=== PATIENT | male | born 1950 | race Two or more races ===

== ENCOUNTER 2022-05-26 05:29 | Day surgery (SDC) | payer OTHER ==
[~2022-05-26 05:29] MED LIST: GLIMEPIRIDE2 MG; IRBESARTAN-HCT1 EACH PO; LOSARTAN-HCTZ1 EACH; METFORMIN HCL500 MG; OMEPRAZOLE20 MG
[2022-05-26] MEDS ORDERED: CIPRO500 MG PO (09:49)
[2022-05-26] MEDS ORDERED: PROTONIX40 MG PO (09:49)
[2022-05-26] MEDS ORDERED: ACETAMINOPHEN-1 EAC2 PO (09:49)
== END 2022-05-26 11:00 | disposition home or self-care (01) ==
LOC: CIR.AMB 05:29
PROVIDERS: ATTEND Surgery
DX: K43.2 Incisional hernia without obstruction or gangrene (principal); K42.9 Umbilical hernia without obstruction or gangrene; K66.0 Peritoneal adhesions (postprocedural) (postinfection); Z88.0 Allergy status to penicillin; Z20.822 Contact with and (suspected) exposure to COVID-19; I10 Essential (primary) hypertension

== ENCOUNTER 2024-01-27 11:55 | Inpatient (IN) | payer OTHER ==
[~2024-01-27] VITALS: Ht 152.4 cm; Wt 89.4 kg
[~2024-01-27 11:55] MED LIST changes: +ACETAMINOPHEN-1 EAC2 PO; +CIPRO500 MG PO; +PROTONIX40 MG PO
[2024-01-27] MEDS ORDERED: RINGERS SOLUTION,LACTATED 1,000 ML IV STA (13:28)
[2024-01-27] MEDS ORDERED: DIATRIZOATE MEGLUMINE, SODIUM 30 ML BOTTLE ONE (14:05)
[2024-01-27 14:19] LABS: HEMATOCRIT 25.7 % (39.0-48.0); MEAN CELL VOLUME 89.2 fL (80.0-100.00); MEAN CORPUSCULAR HGB CONC 33.6 g/dl (32.0-36.0); PLATELET COUNT 217 K/uL (150-450); RED BLOOD COUNT 2.88 M/uL (4.00-6.00)
[2024-01-27 14:20] LABS: PH,URINE 5.5 (5.0-8.0); URINE APPEARANCE Clear; URINE BILIRRUBIN Negative (NEGATIVE); URINE BLOOD Negative; URINE COLOR Yellow; URINE GLUCOSE Negative (NEGATIVE); URINE KETONE Negative (NEGATIVE); URINE LEUKOCYTE Negative; URINE NITRATE Negative; URINE PROTEIN Negative (NEGATIVE); URINE RBC 2.2 uL (0.0-20.8); URINE UROBILINOGEN 0.2 E.U./dl; URINE WBC 7.2 uL (0.0-23.2)
[2024-01-27 14:24] LABS: PARTIAL THROMBOPLASTIN TIME 23.5 SECONDS (22.0-34.0); PROTHROMBIN TIME 10.9 SECONDS (9.0-11.5)
[2024-01-27 14:35] LABS: HEMOGLOBIN 8.6 g/dL (13-16.00); MEAN CORPUSCULAR HEMOGLOBIN 29.8 pg (27.00-32.0)
[2024-01-27 14:39] LABS: ALBUMIN 3.6 gm/dL (3.4-5.0); BILIRUBIN TOTAL 0.67 mg/dL (0.3-1.2); BILIRUBIN,CONJUGATED 0.18 mg/dL (0.0-0.2); BILIRUBIN,UNCONJUGATED 0.49 mg/dL (0.0-0.6); CALCIUM 8.9 mg/dL (8.5-10.1); CREATININE SERUM 1.23 mg/dL (0.70-1.30); GFR 58.01; POTASSIUM 3.69 mEq/L (3.5-5.1); TOTAL PROTEIN 6.6 gm/dL (6.4-8.2)
[2024-01-27 17:47] VITALS: BP 144/80; O2SAT 100
[2024-01-27] MEDS ORDERED: 0.9 % SODIUM CHLORIDE 1,000 ML IV SCH (19:15)
[2024-01-27] MEDS ORDERED: FUROsemide 20 MG/2 ML VIAL IV SCH (19:30)
[2024-01-27] MEDS ORDERED: ONDANSETRON HCL 4 MG in 0.9 % SODIUM CHLORIDE 50 ML IV PRN (19:30)
[2024-01-27] MEDS ORDERED: ACETAMINOPHEN 500 MG GEL..CAP PO PRN (19:30)
[2024-01-27] MEDS ORDERED: PANTOPRAZOLE SODIUM 40 MG/VIAL VIAL IV SCH (21:00)
[2024-01-28 00:13] LABS: ob POSITIVE (NEGATIVE)
[2024-01-28 01:28] VITALS: BP 125/73; O2SAT 98
[2024-01-28 07:47] VITALS: BP 148/86
[2024-01-28] MEDS ORDERED: IRON FUM,PS/FOLIC/BCOMP,C NO.9 1 CAP CAPSULE PO SCH (09:00)
[2024-01-28] MEDS ORDERED: HYDROCHLOROTHIAZIDE 12.5 MG CAPSULE PO SCH (09:00)
[2024-01-28] MEDS ORDERED: IRBESARTAN 150 MG TABLET PO SCH (09:00)
[2024-01-28] MEDS ORDERED: INTEGRA PLUS C1 EACH (09:14)
[2024-01-28] MEDS ORDERED: IRBESARTAN150 MG (09:14)
[2024-01-28] MEDS ORDERED: FAMOTIDINE20 MG (09:14)
[2024-01-28] MEDS ORDERED: HYDROCHLOROTH12.5 M2 (09:15)
[2024-01-28] MEDS ORDERED: TAMSULOSIN HCL0.4 MG (09:15)
[2024-01-28 18:34] VITALS: BP 152/79
[2024-01-29 01:46] VITALS: BP 140/77; O2SAT 97
[2024-01-29 08:00] VITALS: BP 138/79; O2SAT 100
[2024-01-29] MEDS ORDERED: fentaNYL CITRATE 50 MCG/ML AMPUL IV ONE (13:15)
[2024-01-29] MEDS ORDERED: MIDAZOLAM HCL 2 MG/2 ML VIAL IV ONE (13:15)
[2024-01-29 15:07] LABS: HEMATOCRIT 35.4 % (39.0-48.0); HEMOGLOBIN 11.9 g/dL (13-16.00); MEAN CELL VOLUME 89.9 fL (80.0-100.00); MEAN CORPUSCULAR HEMOGLOBIN 30.2 pg (27.00-32.0); MEAN CORPUSCULAR HGB CONC 33.6 g/dl (32.0-36.0); PLATELET COUNT 215 K/uL (150-450); RED BLOOD COUNT 3.94 M/uL (4.00-6.00); RED CELL DISTRIBUTION WIDTH 14.5 % (11.5-14.5)
[2024-01-29 17:00] VITALS: BP 183/76
[2024-01-30 02:03] VITALS: BP 128/74
[2024-01-30 08:26] VITALS: BP 141/74
[2024-01-30 16:00] VITALS: BP 150/81; O2SAT 97
[2024-01-31 01:53] VITALS: BP 165/83
[2024-01-31 08:34] LABS: HEMATOCRIT 30.4 % (39.0-48.0); HEMOGLOBIN 10.4 g/dL (13-16.00); MEAN CELL VOLUME 87.8 fL (80.0-100.00); MEAN CORPUSCULAR HEMOGLOBIN 30.1 pg (27.00-32.0); MEAN CORPUSCULAR HGB CONC 34.3 g/dl (32.0-36.0); PLATELET COUNT 169 K/uL (150-450); RED BLOOD COUNT 3.46 M/uL (4.00-6.00); RED CELL DISTRIBUTION WIDTH 14.4 % (11.5-14.5)
[2024-01-31 09:22] VITALS: BP 138/78
[2024-01-31 16:00] VITALS: BP 158/84; O2SAT 97
[2024-01-31] MEDS ORDERED: PEG3350/SOD SULF,BICARB,CL/KCL 4,000 ML GALLON PO NR (19:00)
[2024-02-01 02:22] VITALS: BP 166/96; O2SAT 98
[2024-02-01 08:34] VITALS: BP 175/85
[2024-02-01] MEDS ORDERED: MIDAZOLAM HCL 2 MG/2 ML VIAL IV STA (13:41)
[2024-02-01] MEDS ORDERED: fentaNYL CITRATE 50 MCG/ML AMPUL IV STA (13:42)
[2024-02-01 17:28] VITALS: BP 147/83
[2024-02-01 22:05] VITALS: BP 180/84
[2024-02-02 01:33] VITALS: BP 145/85; O2SAT 99
[2024-02-02 07:00] VITALS: BP 136/79; O2SAT 96
[2024-02-02 10:08] LABS: HEMATOCRIT 29.2 % (39.0-48.0); HEMOGLOBIN 9.8 g/dL (13-16.00); MEAN CELL VOLUME 89.5 fL (80.0-100.00); MEAN CORPUSCULAR HEMOGLOBIN 30.1 pg (27.00-32.0); MEAN CORPUSCULAR HGB CONC 33.6 g/dl (32.0-36.0); PLATELET COUNT 183 K/uL (150-450); RED BLOOD COUNT 3.26 M/uL (4.00-6.00); RED CELL DISTRIBUTION WIDTH 14.1 % (11.5-14.5)
== END 2024-02-02 14:38 | disposition home or self-care (01) | DRG 812 ==
LOC: ER 11:57 → MEDJ 19:57 → MEDI 02-01 15:06
PROVIDERS: General Practice; Internal Medicine Gastroenterology; ADMIT Internal Medicine; ATTEND Internal Medicine
PROC: BW21YZZ Computerized Tomography (CT Scan) of Abdomen and Pelvis using Other Contrast (ICD-10-PCS; 2024-01-27)
PROC: 30233N1 Transfusion of Nonautologous Red Blood Cells into Peripheral Vein, Percutaneous Approach (ICD-10-PCS; principal; 2024-01-28)
PROC: 0DB98ZX Excision of Duodenum, Via Natural or Artificial Opening Endoscopic, Diagnostic (ICD-10-PCS; 2024-01-29)
PROC: 0DB78ZX Excision of Stomach, Pylorus, Via Natural or Artificial Opening Endoscopic, Diagnostic (ICD-10-PCS; 2024-01-29)
PROC: 0DB68ZX Excision of Stomach, Via Natural or Artificial Opening Endoscopic, Diagnostic (ICD-10-PCS; 2024-01-29)
PROC: 0DJD8ZZ Inspection of Lower Intestinal Tract, Via Natural or Artificial Opening Endoscopic (ICD-10-PCS; 2024-02-01)
DX: D64.89 Other specified anemias (principal); K92.1 Melena; D13.2 Benign neoplasm of duodenum; K29.50 Unspecified chronic gastritis without bleeding; D18.1 Lymphangioma, any site; K57.30 Diverticulosis of large intestine without perforation or abscess without bleeding; I10 Essential (primary) hypertension; E11.9 Type 2 diabetes mellitus without complications; Z88.0 Allergy status to penicillin; Z91.013 Allergy to seafood

== ENCOUNTER 2024-08-07 23:24 | Emergency (ER) | payer OTHER ==
[~2024-08-07] VITALS: Ht 175.3 cm; Wt 87.5 kg
[~2024-08-07 23:24] MED LIST changes: +FAMOTIDINE20 MG; +HYDROCHLOROTH12.5 M2; +INTEGRA PLUS C1 EACH; +IRBESARTAN150 MG; +TAMSULOSIN HCL0.4 MG
[2024-08-08] MEDS ORDERED: LACTOBACILLUS ACIDOPHILUS 1 CAP CAP PO STA (01:38)
[2024-08-08] MEDS ORDERED: HYOSCYAMINE SULFATE 0.125 MG TAB.SUBL SL ONE (01:45)
[2024-08-08 02:12] LABS: HEMATOCRIT 36.7 % (39.0-48.0); HEMOGLOBIN 12.1 g/dL (13-16.00); MEAN CELL VOLUME 90.7 fL (80.0-100.00); MEAN CORPUSCULAR HEMOGLOBIN 29.9 pg (27.00-32.0); MEAN CORPUSCULAR HGB CONC 32.9 g/dl (32.0-36.0); RED BLOOD COUNT 4.05 M/uL (4.00-6.00); RED CELL DISTRIBUTION WIDTH 13.6 % (11.5-14.5)
[2024-08-08 03:03] LABS: PLATELET COUNT 125 K/uL (150-450)
[2024-08-08] MEDS ORDERED: LEVSIN/SL0.125 MG SL (04:17)
[2024-08-08] MEDS ORDERED: INTESTINEX680 M2 PO (04:17)
== END 2024-08-08 04:31 ==
LOC: ER 23:25
PROVIDERS: General Practice
DX: R19.7 Diarrhea, unspecified (principal); I10 Essential (primary) hypertension; E11.9 Type 2 diabetes mellitus without complications; Z88.0 Allergy status to penicillin